=== PATIENT | female | born 1980 | race Caucasian/White ===

== ENCOUNTER 2017-09-21 19:42 | Emergency (ER) | payer OTHER ==
--- NOTE | 2017-09-21 19:48 | EDPHY ---
H & P Time Seen by Provider: 09/21/17 19:47 HPI/ROS: CHIEF COMPLAINT: Locked left knee HISTORY OF PRESENT ILLNESS: The patient presents the ED via EMS with complaints of a locked left knee. The patient has a history of a prior meniscal injury which resulted in a locked knee. She had surgery on her knee in 2010. She had a twisting injury this evening when she developed a recurrent inability to extend the knee and sensation of immobility. The patient did not fall or sustain a direct blow. She denies recent fever, erythema or acute neurologic complaints. REVIEW OF SYSTEMS: A comprehensive 10 point review of systems is otherwise negative aside from elements mentioned in the history of present illness. Source: Patient Exam Limitations: No limitations - Physical Exam Exam: General Appearance: Alert, no distress Neurological: Neurologically intact in the left lower extremity Skin: Warm and dry, no rashes Extremities: Left knee is held in slight flexion, patient cannot fully extend or flex the knee secondary to pain. No effusion, no erythema or warmth Constitutional: Initial Vital Signs Temperature (C) 37 C 09/21/17 19:48 Heart Rate 76 09/21/17 19:48 Blood Pressure 127/74 H 09/21/17 19:48 O2 Sat (%) 96 09/21/17 19:48 O2 Delivery Mode Room Air Medical Decision Making ED Course/Re-evaluation: Procedure: Local anesthetic injection into the knee with close reduction of presumed meniscal flap Under sterile conditions the knee was injected with 8 mL of 1% lidocaine. The patient achieved adequate anesthesia. Traction was applied to the leg and I was able to reduce the leg. I did feel an audible and palpable pop and the leg then easily went back into its normal anatomic position. The patient will be placed in a straight leg knee immobilizer. She will be given instructions to follow up with Orthopedic surgery. Departure - Departure Disposition: Home, Routine, Self-Care Clinical Impression: Locking of left knee Condition: Good Instructions: Knee Pain (ED) Additional Instructions: 1. Please wear knee immobilizer until seen in follow-up by Orthopedic surgery. 2. Weight bear as tolerated. 3. You have been given the number of Dr. Roman our on-call orthopedic surgeon. Please contact his office tomorrow to schedule a follow-up visit. Referrals: Roberto Roman MD [Medical Doctor] - As per Instructions
[2017-09-21 19:53] VITALS: TEMP 98.6
[2017-09-21 20:44] VITALS: BP 112/78; PULSE 67; RESP 18; O2SAT 97
== END 2017-09-21 20:43 | disposition home or self-care (01) ==
LOC: EDUNIT#
PROC: 0SSDXZZ Reposition Left Knee Joint, External Approach (ICD-10-PCS; principal; 2017-09-21)
DX: S83.105A Unspecified dislocation of left knee, initial encounter (principal); X58.XXXA Exposure to other specified factors, initial encounter
CPT/HCPCS: L1830